=== PATIENT | male | born 1945 ===

== ENCOUNTER → 2020-03-20 10:11 | Outpatient (BNVA) | payer MEDICARE, SELFPAY | PROVIDERS: Family Provider Family Medicine; Visit Provider Family Medicine | DX: I10 Essential (primary) hypertension (principal); E78.5 Hyperlipidemia, unspecified; Z12.5 Encounter for screening for malignant neoplasm of prostate | CPT/HCPCS: 80053; 80061; 82043; 85025; G0103 ==

== ENCOUNTER → 2020-05-02 10:38 | Outpatient (BNVA) | payer MEDICARE, SELFPAY | PROVIDERS: Family Provider Family Medicine; PCP Family Medicine; Referring Provider Family Medicine; Visit Provider Urology | DX: R97.20 Elevated prostate specific antigen [PSA] (principal); K40.90 Unilateral inguinal hernia, without obstruction or gangrene, not specified as recurrent; I10 Essential (primary) hypertension; E78.5 Hyperlipidemia, unspecified; Z79.899 Other long term (current) drug therapy | CPT/HCPCS: 81003; 84153 ==

== ENCOUNTER → 2020-07-26 09:05 | Outpatient (BNVA) | payer MEDICARE, SELFPAY | PROVIDERS: Family Provider Family Medicine; PCP Family Medicine; Visit Provider Urology | DX: R97.20 Elevated prostate specific antigen [PSA] (principal); N39.9 Disorder of urinary system, unspecified | CPT/HCPCS: 84153 ==

== ENCOUNTER → 2020-08-01 12:58 | Outpatient (BNVA) | payer MEDICARE, SELFPAY | PROVIDERS: Family Provider Family Medicine; PCP Family Medicine; Visit Provider Urology | DX: R97.20 Elevated prostate specific antigen [PSA] (principal) | CPT/HCPCS: 81003 ==

== ENCOUNTER → 2021-01-31 12:55 | Outpatient (BNVA) | payer MEDICARE, SELFPAY | PROVIDERS: Family Provider Family Medicine; PCP Family Medicine; Visit Provider Urology | DX: R97.20 Elevated prostate specific antigen [PSA] (principal) | CPT/HCPCS: 84153 ==

== ENCOUNTER → 2021-03-12 10:34 | Outpatient (BNVA) | payer MEDICARE, SELFPAY | PROVIDERS: Family Provider Family Medicine; PCP Family Medicine; Visit Provider Family Medicine | DX: I10 Essential (primary) hypertension (principal); E78.5 Hyperlipidemia, unspecified | CPT/HCPCS: 80053; 80061; 82043; 85025 ==

== ENCOUNTER → 2021-09-07 09:05 | Outpatient (BNVA) | payer MEDICARE, SELFPAY | PROVIDERS: Family Provider Family Medicine; PCP Family Medicine; Visit Provider Family Medicine | DX: R97.20 Elevated prostate specific antigen [PSA] (principal); R73.9 Hyperglycemia, unspecified; R53.83 Other fatigue; E78.5 Hyperlipidemia, unspecified | CPT/HCPCS: 80053; 83036; 84153; 84403; 84443 ==

== ENCOUNTER → 2021-12-10 09:46 | Outpatient (BNVA) | payer MEDICARE, SELFPAY | PROVIDERS: Family Provider Family Medicine; PCP Family Medicine; Visit Provider Urology | DX: R97.20 Elevated prostate specific antigen [PSA] (principal) | CPT/HCPCS: 84153 ==

== ENCOUNTER → 2021-12-13 09:22 | Outpatient (BNVA) | payer MEDICARE, SELFPAY | PROVIDERS: Family Provider Family Medicine; PCP Family Medicine; Visit Provider Urology | DX: R97.20 Elevated prostate specific antigen [PSA] (principal) | CPT/HCPCS: 99213 ==

== ENCOUNTER → 2021-12-17 09:37 | Outpatient (BNVA) | payer MEDICARE, SELFPAY | PROVIDERS: Family Provider Family Medicine; PCP Family Medicine; Visit Provider Urology | DX: R97.20 Elevated prostate specific antigen [PSA] (principal) | CPT/HCPCS: 81003 ==

== ENCOUNTER → 2022-03-07 11:51 | Outpatient (BNVA) | payer MEDICARE, SELFPAY | PROVIDERS: Family Provider Family Medicine; PCP Family Medicine; Visit Provider Family Medicine | DX: Z13.6 Encounter for screening for cardiovascular disorders (principal); I10 Essential (primary) hypertension; E78.5 Hyperlipidemia, unspecified | CPT/HCPCS: 80053; 85025 ==

== ENCOUNTER → 2022-09-05 11:59 | Outpatient (BNVA) | payer MEDICARE, SELFPAY | PROVIDERS: Family Provider Family Medicine; PCP Family Medicine; Visit Provider Family Medicine | DX: I10 Essential (primary) hypertension (principal); E78.5 Hyperlipidemia, unspecified | CPT/HCPCS: 80048 ==

== ENCOUNTER → 2023-03-06 12:16 | Outpatient (BNVA) | payer MEDICARE, SELFPAY | PROVIDERS: Family Provider Family Medicine; PCP Family Medicine; Visit Provider Family Medicine | DX: I10 Essential (primary) hypertension (principal); Z13.6 Encounter for screening for cardiovascular disorders; R97.20 Elevated prostate specific antigen [PSA]; R53.83 Other fatigue; Z79.899 Other long term (current) drug therapy | CPT/HCPCS: 80053; 80061; 84153; 84443; 85025 ==

== ENCOUNTER 2023-03-20 07:13 | Outpatient (CLI) | payer MEDICARE, SELFPAY ==
--- NOTE | 2023-03-20 07:45 | USR_ITS ---
PROCEDURE INFORMATION: Exam: US Abdomen, Limited; Right Upper Quadrant Exam date and time: 03/20/2023 7:55 AM Age: 77 years old Clinical indication: Abnormal findings; Abnormal lab test; Abnormal function test of other organs/systems; Additional info: Elevated lft's TECHNIQUE: Imaging protocol: Real time ultrasound of the abdomen with image documentation. Limited exam focused on the right upper quadrant. COMPARISON: CT chest wo con [id number] 09/14/2018 3:01 PM FINDINGS: Liver: In the posterior aspect of the liver there is a subcapsular hypoechoic lesion measuring 2.8 x 3.3 x 3.3 cm. The liver is echogenic compatible with fatty infiltration. Gallbladder: Normal. No gallstones. There is no gallbladder wall thickening. Biliary ducts: The common duct measures 4 mm. Pancreas: Visualized pancreas is unremarkable. Right kidney: The right kidney measures 11.9 cm in length, normal contour and echotexture without evidence for hydronephrosis. US/US liver [id number] IMPRESSION: Fatty liver. 2.8 x 3.3 x 3.3 cm subcapsular hypoechoic area in the posterior right lobes. Suggest MRI of the abdomen with and without intravenous contrast to further assess.
== END 2023-03-20 07:14 | disposition home or self-care (01) ==
LOC: RAD 07:14
PROVIDERS: Family Provider Family Medicine; PCP Family Medicine; Visit Provider Family Medicine
DX: R79.89 Other specified abnormal findings of blood chemistry (principal); K76.0 Fatty (change of) liver, not elsewhere classified
CPT/HCPCS: 76705

== ENCOUNTER 2023-04-11 09:32 | Outpatient (CLI) | payer MEDICARE, SELFPAY ==
--- NOTE | 2023-04-11 09:30 | NM_ITS ---
WS: [id number] NUCLEAR MEDICINE WHOLE BODY BONE SCAN HISTORY: elevated alk phos, elevated psa COMPARISON: None available. TECHNIQUE: The patient was injected with 25.1 mCi of Technetium 99m HDP and serial whole-body scintig winston have been performed with anterior and posterior images. Normal osseous and soft tissue uptake throughout the skeleton with no evidence for metastatic disease . There is mild increased uptake at the AC, wrist and knee joints from arthritis. No abnormality in t he region of the ribs of the spine. Normal soft tissue uptake. Renal activity is identified. IMPRESSION: No evidence for metastatic disease to the bony skeleton.
== END 2023-04-11 09:33 | disposition home or self-care (01) ==
PROVIDERS: PCP Family Medicine; Visit Provider Family Medicine
DX: R74.8 Abnormal levels of other serum enzymes (principal); R97.20 Elevated prostate specific antigen [PSA]
CPT/HCPCS: 78306; A9561

== ENCOUNTER 2023-04-22 10:39 | Outpatient (CLI) | payer MEDICARE, SELFPAY ==
--- NOTE | 2023-04-22 11:00 | MR_ITS ---
WS: [id number] MRI/MRCP OF THE ABDOMEN WITHOUT GADOLINIUM ENHANCEMENT TECHNIQUE: Coronal T2 Fase BH, Axial T2 Fase BH, Axial T2 FS BH, Zxial 3D Rushing BH, Axial DWI BH, 2D MRCP Radial BH, 3D MRCP (Resp), and Axial 3D Dyn BH Post sequences. CLINICAL INFORMATION: liver mass COMPARISON: None. FINDINGS: Prior ultrasound reviewed 03/20/2023. Small hepatic cyst in the LEFT hepatic lobe measuring 9 mm. No enhancement. Normal portal vein and splenic vein. Fatty atrophy of the pancreas. Partially visualized kidneys appear normal. Adrenal glan ds are normal. Enhancing lesions in the spleen masslike represent splenic hemangiomas largest measures 15 mm. 17 mm LEFT renal cyst. Normal gallbladder. Tiny esophageal hiatal hernia. Air-fluid level in the stomach. N ormal caliber upper abdominal aorta. Celiac and SMA are patent. Impression: 1. Small hepatic cyst in the LEFT hepatic lobe measuring 9 mm. No other suspicious hepatic lesions. 2. 17 mm LEFT renal cyst. 3. Enhancing lesions within the spleen most like represent splenic hemangiomas the largest measuring 15 mm. Recommend 3 to 6-month follow-up with CT or MRI to confirm stability. 4. No other acute findings.
[2023-04-22] MEDS: gadobenate dimeglumine 20 mL vial IV (11:43)
== END 2023-04-22 10:40 | disposition home or self-care (01) ==
LOC: RAD 10:39
PROVIDERS: PCP Family Medicine; Visit Provider Family Medicine
DX: K76.89 Other specified diseases of liver (principal); R16.0 Hepatomegaly, not elsewhere classified; N28.1 Cyst of kidney, acquired; D73.89 Other diseases of spleen
CPT/HCPCS: 74183; A9577

== ENCOUNTER → 2023-04-24 10:40 | Outpatient (BNVA) | payer MEDICARE, SELFPAY | PROVIDERS: PCP Family Medicine; Visit Provider Family Medicine | DX: R79.89 Other specified abnormal findings of blood chemistry (principal) | CPT/HCPCS: 80053 ==

== ENCOUNTER → 2023-09-08 11:10 | Outpatient (BNVA) | payer MEDICARE, SELFPAY | PROVIDERS: PCP Family Medicine; Visit Provider Family Medicine | DX: E53.8 Deficiency of other specified B group vitamins (principal); R41.3 Other amnesia; I10 Essential (primary) hypertension | CPT/HCPCS: 80053; 82607; 85025 ==

== ENCOUNTER 2023-12-11 09:53 | Oncology outpatient (recurring) (ONCR) | payer MEDICARE, SELFPAY ==
--- NOTE | 2023-12-11 10:45 | N.ONRAD NP_ITS ---
Radiation Oncology New Patient Visit Patient: Fermin Adams MR#: [id number] : 1945> Age: 78> Sex: Male> Dictated by: Dr. Simin Louie Date of Service: 12/11/2023 Referring Physician(s) : Osman Diagnosis: Adenocarcinoma the prostate Varnell score 7 (3+4, 4+3) current PSA 3.6 Radiotherapy to date: Summary > No prior radiation therapy. Chief Complaint / History of Present Illness: Patient is a 78-year-old gentleman who has had an elevated PSA for several years. He said he was initially following with a local urologist and a watch and wait manner. His PSA had climbed from the teens up to 36. He had a bone scan in March which did not not reveal any metastatic disease he finally agreed to an MRI of his pelvis to see if he would be a candidate for a targeted MRI biopsy. Somehow he got it in his head that random biopsies would result in 27 biopsies and he felt that that was unnecessary to biopsy such a small gland that many times. This really held him up for several years. He even visited with urologist in [place] who told him he would still do multiple biopsies and so he never went back. He finally was sent to Dr. Brewer who did MRI guided biopsies and found on August 12, 2023 that he had 8 of 14 biopsies positive for Leonid score 7 adenocarcinoma the prostate stage T2b. He then had genetic testing done and was found to have a 13% risk of distant metastasis at 10 years. He went back in September to review the results and said at that point he did not want to do anything until summer was over. He is scheduled at this point to go back on January [address] Brewer again and perhaps get his SpaceOAR scheduled. [facility] also [facility]. He is here today to discuss the radiation portion of his treatment. Current Medications: atorvastatin TAKE 1 TABLET BY MOUTH EVERYDAY AT BEDTIME cholecalciferol (vitamin D3) 10 mcg PO DAILY diazepam (Valium) 5 mg PO ONCE PRN lisinopril 10 mg PO BID magnesium 250 mg PO DAILY meloxicam 15 mg PO .once daily with food multivitamin 1 tab PO DAILY potassium mg PO red beet root-sour cheung ext 250-0.5 mg tabs PO saw palmetto 450 mg PO DAILY vitamin B complex (B Complex-Vitamin B12 tablet) 1 tab PO DAILY Allergies: oxytetracycline [From Terramycin] Adverse Reaction (Mild Medical History: Elevated PSA Right inguinal hernia Essential hypertension Hyperlipidemia Surgical History: Hx of tonsillectomy No pertinent past surgical history Family History: Mother , at age 98 No problems noted. Father , in his 90's No problems noted. Other CAD (coronary artery disease) Social History: Smoking and tobacco/nicotine status: former use of tobacco/nicotine Alcohol intake: current Alcohol intake frequency: 0-2 Drinks per Day Alcohol type: hard liquor Substance/Drug Use: never Marital status: Current occupational status: retired Dietary Habits: Caffeine: Yes Caffeine intake frequency: carbonated beverages Current Complaints / Review of Systems: . Vital Signs: Performed on 12/11/2023 10:05 AM BMI - 33.306 kg/m2 (high), Height - 71 in, Weight - 238.8 lbs, Temperature - 97 f, Pulse - 82 /min, Respiration - 18 /min, O2 Sat - 94 % (low), Pain - 0, Fatigue - 0 and BP - 163/ 91 mm(hg)(high). Physical Exam: General: Patient is alert and orient x 3. In no apparent distress HEENT: Normocephalic atraumatic. Pupils are equal, sclera clear, extraocular muscles intact Pulmonary: Respiratory rate is regular nonlabored Cardiovascular: Regular rate and rhythm Abdomen: Moderately protuberant and android pattern Extremities: Without clubbing cyanosis or edema Skin: He has areas across his forehead and cheek and along his arms from chronic sun exposure Neurological: Alert and orient x 3. Gait and speech within normal limits Psych: Affect appears to be fairly nonchalant about current situation Performance Status: 100 Impression: Adenocarcinoma the prostate stage T2b, Varnell score 7, PSA 36.3 Plan: At this point he will see Dr. Brewer mid December and have his Eligard done as well as get his spacer scheduled. Will see him back a week or 2 after he has had his spacers placed. I reviewed with the patient the simulation process. We talked about the risks and side effects both acute and long-term. We reviewed the course of treatment which would be a 5 and half week course. At this point he had no additional questions or concerns. He was adamantly concerned about dysuria and so I asked him to go ahead and strip picker Azo [id number] so that he can use that if he needs to down the line. He otherwise was fairly comfortable with any other side effects and the current situation. At this point we gave him the phone number to call as soon as he knows whenher schedule and then will be able to schedule his next appointment. Signed by: 12/11/2023 10:45:56 AM <<Signature on File>> Time spent with [email or web address]: CPT Code: CPT Code:
== END 2023-12-22 23:59 | disposition home or self-care (01) ==
LOC: ONCMED 09:54
PROVIDERS: PCP Family Medicine; Visit Provider Radiology Radiation Oncology
DX: C61 Malignant neoplasm of prostate (principal)
CPT/HCPCS: 99205

== ENCOUNTER → 2024-01-02 08:46 | Outpatient (BNVA) | payer MEDICARE, SELFPAY | PROVIDERS: PCP Family Medicine; Visit Provider Family Medicine | DX: R97.20 Elevated prostate specific antigen [PSA] (principal) | CPT/HCPCS: 84153 ==

== ENCOUNTER 2024-02-17 09:40 | Oncology outpatient (recurring) (ONCR) | payer MEDICARE, SELFPAY | END 2024-02-21 23:59 | disposition home or self-care (01) | LOC: ONCMED 09:41 | PROVIDERS: PCP Family Medicine; Visit Provider Radiology Radiation Oncology | DX: Z51.0 Encounter for antineoplastic radiation therapy (principal); C61 Malignant neoplasm of prostate | CPT/HCPCS: 77300; 77301; 77334; 77338 ==

== ENCOUNTER 2024-03-12 10:41 | Oncology outpatient (recurring) (ONCR) | payer MEDICARE, SELFPAY ==
--- NOTE | 2024-02-25 11:31 | ONCRAD TMN_ITS ---
Radiation Oncology Weekly Treatment Management Patient: Angie Del Cid MR#: [id number] : 1945> Attending Physician: Dr. Simin Louie Date of Service: 02/24/2024 Fractions: 1 out of 28 Referring Physician(s) : Diagnosis: C61 - Malignant neoplasm of prostate, Diagnosed 02/17/2024 (Active) Radiotherapy to date: Course: prostate/pelvis, Treatment Site: Prostate Pelvis SIB, Ref. ID: [id number], Energy: 15X, Dose/Fx (cGy): 250, #Fx: , Dose Correction (cGy): 0, Total Dose Delivered (cGy): 250, Start Date: 02/24/2024, Elapsed Days: 0 Reason for visit: The patient is being seen today as part of their regularly scheduled weekly on treatment visits to assess for acute toxicities from radiotherapy. Review of Systems: Patient is without complaints. Vital Signs: Performed on 02/24/2024 1:18 PM BMI - 33.543 kg/m2 (high), Height - 71 in, Weight - 240.5 lbs, Temperature - 96 f, Pulse - 84 /min, Respiration - 18 /min, O2 Sat - 96 %, Pain - 0, Fatigue - 0 and BP - 167/ 76 mm(hg)(high/). Physical Exam: No changes on exam Imaging: Radiation therapy imaging related to accurate target localization (i.e. KV, MV and CBCT) was reviewed. Appropriate changes, if any, were made to ensure treatment accuracy. Plan: Will continue with his treatments as planned. Signed by: Dr. Simin Louie 02/25/2024 11:29:39 AM
--- NOTE | 2024-03-02 13:45 | ONCRAD TMN_ITS ---
Radiation Oncology Weekly Treatment Management Patient: Angie Christensen> MR#: [id number] : 1945> Attending Physician: Dr. Simin Louie Date of Service: 03/02/2024 Fractions: 6 out of 28 Referring Physician(s) : Diagnosis: C61 - Malignant neoplasm of prostate, Diagnosed 02/17/2024 (Active) Radiotherapy to date: Course: prostate/pelvis, Treatment Site: Prostate Pelvis SIB, Ref. ID: [id number], Energy: 15X, Dose/Fx (cGy): 250, #Fx: , Dose Correction (cGy): 0, Total Dose Delivered (cGy): 1,500, Start Date: 02/24/2024, Elapsed Days: 7 Reason for visit: The patient is being seen today as part of their regularly scheduled weekly on treatment visits to assess for acute toxicities from radiotherapy. Review of Systems: Patient has had hot flashes from the ADT. He is also has some increased frequency of urination Vital Signs: Performed on 03/02/2024 1:09 PM BMI - 33.39 kg/m2 (high), Height - 71 in, Weight - 239.4 lbs, Temperature - 96.6 f, Pulse - 72 /min, Respiration - 16 /min, O2 Sat - 94 % (low), Pain - 0, Fatigue - 0 and BP - 162/ 85 mm(hg)(high/). Physical Exam: No changes on exam Imaging: Radiation therapy imaging related to accurate target localization (i.e. KV, MV and CBCT) was reviewed. Appropriate changes, if any, were made to ensure treatment accuracy. Plan: Will continue with his treatment as planned. We are also talked about his next appointment at Dr. Brewer's office for his ADT which is March 29. He is not able to keep that appointment secondary to his 's recent accident. I will check to see if we can give him his ADT here and call Dr. Brewer's office to see exactly what he was given previously. Signed by: Dr. Simin Louie 03/02/2024 1:43:36 PM
--- NOTE | 2024-03-09 14:07 | ONCRAD TMN_ITS ---
Radiation Oncology Weekly Treatment Management Patient: Fermin Adams MR#: [id number] : 1945 Attending Physician: Dr. Simin Louie Date of Service: 03/09/2024 Fractions: 11 out of 28 Referring Physician(s) : Diagnosis: C61 - Malignant neoplasm of prostate, Diagnosed 02/17/2024 (Active) Radiotherapy to date: Course: prostate/pelvis, Treatment Site: Prostate Pelvis SIB, Ref. ID: [id number], Energy: 15X, Dose/Fx (cGy): 250, #Fx: , Dose Correction (cGy): 0, Total Dose Delivered (cGy): 2,750, Start Date: 02/24/2024, Elapsed Days: 14 Reason for visit: The patient is being seen today as part of their regularly scheduled weekly on treatment visits to assess for acute toxicities from radiotherapy. Review of Systems: Patient denies any changes other than increased frequency which is stable Vital Signs: Performed on 03/09/2024 1:27 PM BMI - 32.776 kg/m2 (high), Height - 71 in, Weight - 235.0 lbs, Temperature - 96.8 f, Pulse - 80 /min, Respiration - 18 /min, O2 Sat - 96 %, Pain - 0, Fatigue - 0 and BP - 151/ 69 mm(hg)(high/). Physical Exam: No changes on exam Imaging: Radiation therapy imaging related to accurate target localization (i.e. KV, MV and CBCT) was reviewed. Appropriate changes, if any, were made to ensure treatment accuracy. Plan: Will continue with treatment as planned. He did ask today why the entire prostate needed to be treated. I reviewed the rationale for this and he was satisfied. Signed by: Dr. Simin Louie 03/09/2024 2:05:32 PM
== END 2024-03-12 23:59 | disposition home or self-care (01) ==
PROVIDERS: PCP Family Medicine; Visit Provider Radiology Radiation Oncology
DX: Z51.0 Encounter for antineoplastic radiation therapy (principal); C61 Malignant neoplasm of prostate
CPT/HCPCS: 77336; 77385; 99024

== ENCOUNTER 2024-03-23 13:08 | Oncology outpatient (recurring) (ONCR) | payer MEDICARE, SELFPAY ==
--- NOTE | 2024-03-16 11:54 | ONCRAD TMN_ITS ---
Radiation Oncology Weekly Treatment Management Patient: Fermin Adams MR#: [id number] : 1945 Attending Physician: Dr. Simin Louie Date of Service: 03/16/2024 Fractions: 16 out of 28 Referring Physician(s) : Diagnosis: C61 - Malignant neoplasm of prostate, Diagnosed 02/17/2024 (Active) Radiotherapy to date: Course: prostate/pelvis, Treatment Site: Prostate Pelvis SIB, Ref. ID: [id number], Energy: 15X, Dose/Fx (cGy): 250, #Fx: 16 / 28, Dose Correction (cGy): 0, Total Dose Delivered (cGy): 4,000, Start Date: 02/24/2024, Elapsed Days: 21 Reason for visit: The patient is being seen today as part of their regularly scheduled weekly on treatment visits to assess for acute toxicities from radiotherapy. Review of Systems: Patient continues to have frequency of urination Vital Signs: Performed on 03/16/2024 11:25 AM BMI - 33.167 kg/m2 (high), Height - 71 in, Weight - 237.8 lbs, Temperature - 96.4 f, Pulse - 85 /min, Respiration - 17 /min, O2 Sat - 98 %, Pain - 0, Fatigue - 0 and BP - 163/ 81 mm(hg)(high/). Physical Exam: No changes on exam Imaging: Radiation therapy imaging related to accurate target localization (i.e. KV, MV and CBCT) was reviewed. Appropriate changes, if any, were made to ensure treatment accuracy. Plan: I have asked him to go ahead and take the Azo that he got that he had not tried yet. Will otherwise continue with his treatments. Signed by: Dr. Simin Louie 03/16/2024 11:53:22 AM
--- NOTE | 2024-03-25 09:09 | ONCRAD TMN_ITS ---
Radiation Oncology Weekly Treatment Management Patient: Angie Christensen> MR#: [id number] : 1945> Attending Physician: Dr. Simin Louie Date of Service: 03/23/2024 Fractions: 20 out of 28 Referring Physician(s) : Diagnosis: C61 - Malignant neoplasm of prostate, Diagnosed 02/17/2024 (Active) Radiotherapy to date: Course: prostate/pelvis, Treatment Site: Prostate Pelvis SIB, Ref. ID: [id number], Energy: 15X, Dose/Fx (cGy): 250, #Fx: 20 / 28, Dose Correction (cGy): 0, Total Dose Delivered (cGy): 5,000, Start Date: 02/24/2024, Elapsed Days: 28 Reason for visit: The patient is being seen today as part of their regularly scheduled weekly on treatment visits to assess for acute toxicities from radiotherapy. Review of Systems: Patient did start taking the Pyridium and has had good resolution of the frequent urination Vital Signs: Performed on 03/23/2024 1:35 PM BMI - 33.167 kg/m2 (high), Height - 71 in, Weight - 237.8 lbs, Temperature - 96.5 f, Pulse - 77 /min, Respiration - 18 /min, O2 Sat - 97 %, Pain - 0 and BP - 145/ 90 mm(hg)(high/). Physical Exam: No changes on exam Imaging: Radiation therapy imaging related to accurate target localization (i.e. KV, MV and CBCT) was reviewed. Appropriate changes, if any, were made to ensure treatment accuracy. Plan: Will continue with his treatments as planned. I did ask him to stay on the Azo for at least a few weeks after we complete his treatment. Signed by: Dr. Simin Louie 03/25/2024 9:07:14 AM
== END 2024-03-23 23:59 | disposition home or self-care (01) ==
PROVIDERS: PCP Family Medicine; Visit Provider Radiology Radiation Oncology
DX: Z51.0 Encounter for antineoplastic radiation therapy (principal); C61 Malignant neoplasm of prostate
CPT/HCPCS: 77336; 77385; 99024

== ENCOUNTER 2024-04-12 13:00 | Oncology outpatient (recurring) (ONCR) | payer MEDICARE, SELFPAY ==
--- NOTE | 2024-03-30 13:59 | ONCRAD TMN_ITS ---
dRadiation Oncology Weekly Treatment Management Patient: Angie Christensen> MR#: [id number] : 1945> Attending Physician: Dr. Simin Louie Date of Service: 03/30/2024 Fractions: 24 out of 28 Referring Physician(s) : Diagnosis: C61 - Malignant neoplasm of prostate, Diagnosed 02/17/2024 (Active) Radiotherapy to date: Course: prostate/pelvis, Treatment Site: Prostate Pelvis SIB, Ref. ID: [id number], Energy: 15X, Dose/Fx (cGy): 250, #Fx: 24 / , Dose Correction (cGy): 0, Total Dose Delivered (cGy): 6,000, Start Date: 02/24/2024, Elapsed Days: 35 Reason for visit: The patient is being seen today as part of their regularly scheduled weekly on treatment visits to assess for acute toxicities from radiotherapy. Review of Systems: Patient is doing well. He took 1 Azo and 1 Flomax and has had marked improvement of his quality of life. Vital Signs: Performed on 03/30/2024 1:23 PM BMI - 33.194 kg/m2 (high), Height - 71 in, Weight - 238 lbs, Temperature - 96.9 f, Pulse - 81 /min, Respiration - 18 /min, O2 Sat - 95 % (low), Pain - 0, Fatigue - 0 and BP - 131/ 65 mm(hg). Physical Exam: No changes on exam Imaging: Radiation therapy imaging related to accurate target localization (i.e. KV, MV and CBCT) was reviewed. Appropriate changes, if any, were made to ensure treatment accuracy. Plan: Will continue with his treatments as planned. I have asked him to stay on the Azo Flomax for several weeks. Signed by: Dr. Simin Louie 03/30/2024 1:57:23 PM
--- NOTE | 2024-04-06 14:19 | N.ONRD TS_ITS ---
Radiation Oncology Treatment Summary Patient: Fermin Adams MR#: [id number] : 1945 Age: 78 Sex: Male Dictated by: Dr. Simin Louie Date of Service: 04/06/2024 Referring Physician(s) : Diagnosis: C61 - Malignant neoplasm of prostate, Diagnosed 02/17/2024 (Active) Radiotherapy to Date: Course: prostate/pelvis Treatment Site: Prostate Pelvis SIB, Ref. ID: [id number], Energy: 15X, Dose/Fx (cGy): 250, #Fx: 28 / 28, Dose Correction (cGy): 0, Total Dose Delivered (cGy): 7,000, Start Date: 02/24/2024, Elapsed Days: 42 Clinical Summary: The patient tolerated RT well. He did have some mild changes in bowel bladder habits. He did require Azo which eliminated the bladder symptoms. Plan: End of treatment today. Continue on the above medication until the skin reaction resolves. Follow up in one month. Signed by: Dr. Simin Louie>04/06/2024 2:18:28 PM <<Signature on File>>
[2024-04-12 13:23] VITALS: BP 145/81; PULSE 79; RESP 17; TEMP 36.1; O2SAT 97
[2024-04-12] MEDS: LEUPROLIDE 22.5 MG SUBCUT (13:33)
== END 2024-04-23 23:59 | disposition home or self-care (01) ==
PROVIDERS: PCP Family Medicine; Visit Provider Radiology Radiation Oncology
DX: Z53.9 Procedure and treatment not carried out, unspecified reason; C61 Malignant neoplasm of prostate; Z79.818 Long term (current) use of other agents affecting estrogen receptors and estrogen levels
CPT/HCPCS: 77336; 77385; 96402; 99024; J9217

== ENCOUNTER 2024-05-10 12:38 | Oncology outpatient (recurring) (ONCR) | payer MEDICARE, SELFPAY ==
--- NOTE | 2024-05-10 13:32 | ONCRAD EPV_ITS ---
Radiation Oncology Established Patient Visit Patient: Angie Christensen [id number] : 1945> Age: 78> Sex: Male> Dictated by: Dr. Simin oLuie Date of Service: 05/10/2024 Referring Physician(s) : Diagnosis: C61 - Malignant neoplasm of prostate, Diagnosed 02/17/2024 (Active) Patient returns today 1 month after having completed his treatments. All of his symptoms have resolved except for some urgency with urination upon standing. He is no longer taking the Azo. He sees Dr. Brewer the end of June. He has a PSA from today. Radiotherapy to Date: Course: prostate/pelvis, Treatment Site: Prostate Pelvis SIB, Ref. ID: [id number], Energy: 15X, Dose/Fx (cGy): 250, #Fx: 28 / 28, Dose Correction (cGy): 0, Total Dose Delivered (cGy): 7,000, Start Date: 02/24/2024, End Date: 04/06/2024, Elapsed Days: 42 Current History: Current Medications: Allergies: Current Complaints / Review of Systems: . Vital Signs: Performed on 05/10/2024 12:56 PM BMI - 33.125 kg/m2 (high), Height - 71 in, Weight - 237.5 lbs, Temperature - 97.8 f, Pulse - 80 /min, Respiration - 17 /min, O2 Sat - 98 %, Pain - 0, Fatigue - 0 and BP - 157/ 84 mm(hg)(high/). Physical Exam: General: Alert and oriented x 3. No acute distress. HEENT: Normocephalic atraumatic. Pupils equal, sclera clear, extraocular muscles intact Pulmonary: Respiratory rate is regular nonlabored Cardiovascular: Regular rate and rhythm. NEUROLOGIC: Alert and orient x 3. Gait and speech within normal limits. Performance Status: 100 Lab: None pending. Pathology: Primary, c61 - malignant neoplasm of prostate, Diagnosed 02/17/2024 (active) . Imaging: See HPI Impression: Adenocarcinoma the prostate status post IMRT and ADT Plan: This point he is doing well. He is having some symptoms from the ADT with hot flashes which happen mostly at night. His fatigue is also gotten worse since he started the ADT. He says he has been tired for many years though. He will get his PSA drawn today. His last PSA prior to treatment was 29.45. He will then visit with Dr. Brewer end of June and we will see him back after that once he decides where he wants to do his follow-ups. Signed by: 05/10/2024 1:30:59 PM <<Signature on File>> Time spent with patient:20 CPT Code: * CPT Code: *
[2024-05-10 14:09] LABS: Basophils % 0.5 %; Eosinophils # 0.1 10^3/uL (0.0-0.8); Eosinophils % 2.2 %; Hematocrit 39.9 % (37-53); Lymphocytes # 0.4 10^3/uL (0.8-4.8); Lymphocytes % 6.9 %; Mean Corpuscular HGB Conc 34.6 g/dL (30-55); Mean Corpuscular Volume 95.5 fl (82-101); Mean Platelet Volume 9.8 fL (7.4-10.4); Monocytes # 0.5 10^3/uL (0.2-0.9); Monocytes % 9.7 %; Neutrophils # 4.44 10^3/uL (1.8-7.7); Neutrophils % 80.2 %; Nucleated Red Blood Cells % 0 %; Platelet Count 177 10^3/cmm (157-399); Red Blood Count 4.18 10^6/uL (3.85-5.65); White Blood Count 5.54 10^3/uL (3.29-11.43)
[2024-05-10 14:41] LABS: Alanine Aminotransferase 21 U/L (0-41); Albumin Level 4.3 g/dL (3.5-5.2); Alkaline Phosphatase 121 U/L (40-130); Anion Gap 18.1 (5-19); Aspartate Amino Transferase 18 U/L (0-40); Blood Urea Nitrogen 13 mg/dL (8-23); Calcium 9.6 mg/dL (8.5-10.5); Carbon Dioxide 24 mmol/L (22-29); Chloride 102 mmol/L (98-107); Chol HDL Ratio 2.61 mg/dL (1.0-5.00); Cholesterol 146 mg/dL (0-200); Globulin 2.4 g/dL (1.3-4.6); Glucose 119 mg/dL (65-115); HDL Cholesterol 56 mg/dL (60-100); LDL Cholesterol Calculated 41 mg/dL (50-129); LDL HDL Ratio 0.73 RATIO (0.00-3.22); Osmolality Calculated 291 mOsm/kg (285-295); Potassium 4.1 mmol/L (3.5-5.1); Sodium 140 mmol/L (136-145); Total Bilirubin 1.2 mg/dL (0.15-1.2); Total Protein 6.7 g/dL (6.6-8.7); Triglycerides 247 mg/dL (0-150)
== END 2024-05-21 23:59 | disposition home or self-care (01) ==
LOC: ONCMED 12:38
PROVIDERS: PCP Family Medicine; Visit Provider Radiology Radiation Oncology
DX: C61 Malignant neoplasm of prostate (principal); R79.89 Other specified abnormal findings of blood chemistry; E78.2 Mixed hyperlipidemia; R97.20 Elevated prostate specific antigen [PSA]; Z92.3 Personal history of irradiation
CPT/HCPCS: 36415; 80053; 80061; 84153; 85025; 99024

== ENCOUNTER → 2025-01-06 10:16 | Outpatient (BNVA) | payer MEDICARE, SELFPAY | PROVIDERS: PCP Family Medicine; Visit Provider Family Medicine | DX: Z12.5 Encounter for screening for malignant neoplasm of prostate (principal); I10 Essential (primary) hypertension; C61 Malignant neoplasm of prostate | CPT/HCPCS: 80053; 84153; 85025 ==